=== PATIENT | male | born 1970 | race African-American/Black ===

== ENCOUNTER 2017-11-11 15:20 | Emergency (ER) | payer BC ==
[~2017-11-11] VITALS: Ht 167.6 cm; Wt 81.6 kg
[2017-11-11] MEDS ORDERED: BECL10.62 IH (15:41)
[2017-11-11] MEDS ORDERED: LOSA1TAB39 PO (15:41)
[2017-11-11] MEDS ORDERED: ALBU8.5H8 IH (15:41)
--- NOTE | 2017-11-11 16:02 | NUR ---
Dr Hurley at the bedside for MSE.
[2017-11-11] MEDS ORDERED: METOPROLOL TARTRATE 50 MG TABLET PO ONE ×2 (16:10→17:30)
[2017-11-11] MEDS ORDERED: METOPROLOL TARTRATE 50 MG TABLET ONE ×2 (16:16→17:21)
[2017-11-11 16:25] LABS: BASOPHILS # (AUTO) 0.1 K/uL (0.0-8.0); BASOPHILS % (AUTO) 1.1 % (0.0-2.0); EOSINOPHILS # (AUTO) 0.1 K/uL (0.0-0.7); EOSINOPHILS % (AUTO) 1.4 % (0.0-7.0); HEMATOCRIT 45.2 % (36.7-47.1); HEMOGLOBIN 15.7 g/dL (12.5-16.3); LYMPHOCYTES # (AUTO) 2.6 K/uL (20.0-40.0); LYMPHOCYTES % (AUTO) 40.4 % (20.5-51.5); MEAN CORPUSCULAR HEMOGLOBIN 31.3 uug (23.8-33.4); MEAN CORPUSCULAR HGB CONC 35 g/dL (32.5-36.3); MEAN CORPUSCULAR VOLUME 90.2 fL (73.0-96.2); MONOCYTES # (AUTO) 0.5 K/uL (2.0-10.0); MONOCYTES % (AUTO) 7.1 % (0.0-11.0); NEUTROPHILS # (AUTO) 3.2 K/uL (1.8-8.9); PLATELET COUNT (AUTO) 219 K/uL (152-348); RED BLOOD CELL COUNT(AUTO) 5.01 MIL/uL (4.06-5.63); WHITE BLOOD COUNT (AUTO) 6.4 K/uL (3.6-10.2)
[2017-11-11 16:35] LABS: CREATININE 1.3 mg/dL (0.6-1.3); POTASSIUM 4.1 mmol/L (3.5-5.1)
--- NOTE | 2017-11-11 16:41 | NUR ---
Pt back from CT, resting in bed.
[2017-11-11 16:42] LABS: BILIRUBIN,TOTAL 0.7 mg/dL (0.2-1.0); TOTAL PROTEIN, SERUM 7.7 g/dL (6.4-8.2)
--- NOTE | 2017-11-11 17:02 | NUR ---
Patient is resting comfortably in bed with eyes closed, NAD noted.
--- NOTE | 2017-11-11 18:15 | NUR ---
dPatient discharged to home in stable conditon. Written and verbal after care instructions given. Patient verbalizes understanding of instructions.
[2017-11-11 18:18] VITALS: BP 150/90
== END 2017-11-11 18:19 | disposition home or self-care (01) ==
LOC: ER 15:24
DX: R01.1 Cardiac murmur, unspecified (principal); R79.89 Other specified abnormal findings of blood chemistry; I10 Essential (primary) hypertension; F10.10 Alcohol abuse, uncomplicated; J45.909 Unspecified asthma, uncomplicated; Z88.0 Allergy status to penicillin
CPT/HCPCS: 36415; 70450; 71045; 80053; 82550; 84484; 85025; 85610; 93005; 99285; A4663; 70030-TC

== ENCOUNTER 2017-11-18 16:00 | Emergency (ER) | payer BC ==
[~2017-11-18] VITALS: Ht 165.1 cm; Wt 81.6 kg
[~2017-11-18 16:00] MED LIST: ALBU8.5H8 IH; BECL10.62 IH; LOSA1TAB39 PO
--- NOTE | 2017-11-18 16:22 | NUR ---
Patient discharged to home in stable conditon. Written and verbal after care instructions given. Patient verbalizes understanding of instructions.PT WALKS IN STEADY GAIT.
== END 2017-11-18 16:24 | disposition home or self-care (01) ==
LOC: ER 16:01
DX: I10 Essential (primary) hypertension (principal); R51 Headache; J45.909 Unspecified asthma, uncomplicated; F17.210 Nicotine dependence, cigarettes, uncomplicated; Z88.0 Allergy status to penicillin; Z79.899 Other long term (current) drug therapy
CPT/HCPCS: A4663

== ENCOUNTER 2017-11-22 18:15 | Emergency (ER) | payer BC ==
[~2017-11-22] VITALS: Ht 167.6 cm; Wt 81.6 kg
[2017-11-22] MEDS ORDERED: KETOROLAC TROMETHAMINE 60 MG INJ IM ONE ×2 (18:45→18:51)
--- NOTE | 2017-11-22 18:54 | NUR ---
Patient discharged to home in stable conditon & brisk steady gait. Written and verbal after care instructions given to patient. Patient verbalizes understanding of instructions.
== END 2017-11-22 18:55 | disposition home or self-care (01) ==
LOC: ER 18:16
DX: J32.9 Chronic sinusitis, unspecified (principal); I10 Essential (primary) hypertension; J45.909 Unspecified asthma, uncomplicated; F17.210 Nicotine dependence, cigarettes, uncomplicated; Z88.0 Allergy status to penicillin; Z79.899 Other long term (current) drug therapy
CPT/HCPCS: A4663; J1885

== ENCOUNTER 2017-12-10 16:11 | Emergency (ER) | payer BC ==
[~2017-12-10] VITALS: Ht 167.6 cm; Wt 81.6 kg
--- NOTE | 2017-12-10 16:52 | NUR ---
Patient discharged to home in stable conditon. Written and verbal after care instructions given. Patient verbalizes understanding of instructions.
== END 2017-12-10 16:54 | disposition home or self-care (01) ==
LOC: ER 16:13
DX: I10 Essential (primary) hypertension (principal); J45.909 Unspecified asthma, uncomplicated; F17.210 Nicotine dependence, cigarettes, uncomplicated; Z88.0 Allergy status to penicillin; Z79.899 Other long term (current) drug therapy
CPT/HCPCS: 99283; A4663

== ENCOUNTER 2018-04-01 15:38 | Emergency (ER) | payer BC ==
[~2018-04-01] VITALS: Ht 172.7 cm; Wt 81.6 kg
== END 2018-04-01 16:03 | disposition home or self-care (01) ==
LOC: ER 15:41
DX: I10 Essential (primary) hypertension (principal); Z76.0 Encounter for issue of repeat prescription; J45.909 Unspecified asthma, uncomplicated; F17.200 Nicotine dependence, unspecified, uncomplicated; Z88.0 Allergy status to penicillin
CPT/HCPCS: 99283; A4663

== ENCOUNTER 2018-07-23 15:19 | Emergency (ER) | payer BC ==
[~2018-07-23] VITALS: Ht 167.6 cm; Wt 68.0 kg
--- NOTE | 2018-07-23 15:49 | NUR ---
Patient discharged to home in stable conditon. Written and verbal after care instructions given. Patient verbalizes understanding of instructions.
== END 2018-07-23 15:50 | disposition home or self-care (01) ==
LOC: ER 15:23
DX: I10 Essential (primary) hypertension (principal); Z76.0 Encounter for issue of repeat prescription; J45.909 Unspecified asthma, uncomplicated; F17.290 Nicotine dependence, other tobacco product, uncomplicated; Z88.0 Allergy status to penicillin; Z79.899 Other long term (current) drug therapy
CPT/HCPCS: A4663

== ENCOUNTER 2018-10-06 15:46 | Emergency (ER) | payer BC ==
[~2018-10-06] VITALS: Ht 167.6 cm; Wt 81.6 kg
--- NOTE | 2018-10-06 16:19 | NUR ---
PT WAS EVALUATED BY DR NIXON. PT WAS D/C'd TO HOME. D/C INSTRUCTIONS GIVEN TO THE PT.
[2018-10-06 16:20] VITALS: BP 135/88
== END 2018-10-06 16:21 | disposition home or self-care (01) ==
LOC: ER 15:46
DX: J45.909 Unspecified asthma, uncomplicated (principal); I10 Essential (primary) hypertension; F17.210 Nicotine dependence, cigarettes, uncomplicated; Z76.0 Encounter for issue of repeat prescription; Z88.0 Allergy status to penicillin; Z79.899 Other long term (current) drug therapy
CPT/HCPCS: A4663